=== PATIENT | male | born 1945 | race Caucasian/White ===

== ENCOUNTER 2016-09-13 08:41 | Inpatient (IN) | payer OTHER ==
[~2016-09-13] VITALS: Ht 170.2 cm; Wt 75.0 kg
[2016-09-13] MEDS ORDERED: GLIM4 PO (08:59)
[2016-09-13] MEDS ORDERED: MULT1TAB66 PO (08:59)
[2016-09-13] MEDS ORDERED: ASPI-1093 PO (08:59)
[2016-09-13] MEDS ORDERED: VALS1TAB79 PO (08:59)
[2016-09-13] MEDS ORDERED: MEMA10TA11 PO (08:59)
[2016-09-13] MEDS ORDERED: ESCI10TA PO (08:59)
[2016-09-13] MEDS ORDERED: AMLO-512 PO (08:59)
[2016-09-13] MEDS ORDERED: SITA50 PO (08:59)
[2016-09-13] MEDS ORDERED: DONE10TA PO (08:59)
[2016-09-13] MEDS ORDERED: ATOR20TA86 PO (08:59)
[2016-09-13] MEDS ORDERED: TAMS0.4C32 PO (08:59)
[2016-09-13] MEDS ORDERED: METF500T4 PO (08:59)
[2016-09-13 09:56] LABS: BASOPHILS # (AUTO) 0.03 K/uL (0.00-0.20); BASOPHILS % (AUTO) 0.4 % (0.0-2.0); EOSINOPHILS # (AUTO) 0.04 K/uL (0.00-0.70); EOSINOPHILS % (AUTO) 0.44 % (1.0-6.0); HEMATOCRIT 35.8 % (41-53); HEMOGLOBIN 11.9 g/dL (13.5-17.5); LYMPHOCYTES # (AUTO) 1.2 K/uL (1.0-4.8); LYMPHOCYTES % (AUTO) 12.9 % (22.0-44.0); MEAN CORPUSCULAR HEMOGLOBIN 30.3 pg (26.0-34.0); MEAN CORPUSCULAR HGB CONC 33.3 G/dL (31.0-37.0); MEAN CORPUSCULAR VOLUME 91 fL (80-100); MONOCYTES # (AUTO) 0.7 K/uL (0.1-1.0); MONOCYTES % (AUTO) 7.7 % (2.0-9.0); NEUTROPHILS # (AUTO) 7.3 K/uL (1.8-7.7); NEUTROPHILS % (AUTO) 78.7 % (40.0-70.0); PLATELET COUNT (AUTO) 248 K/uL (150-450); RED BLOOD CELL COUNT(AUTO) 3.94 MIL/uL (4.50-5.90); RED CELL DISTRIBUTION WIDTH 14.5 % (11.5-14.5); WHITE BLOOD COUNT (AUTO) 9.2 K/uL (4.5-11.0)
[2016-09-13 10:09] LABS: ANION GAP 9 mmol/L (8-16); CALCIUM, TOTAL 9.4 mg/dL (8.8-10.5); CARBON DIOXIDE 30 mmol/L (22-29); CHLORIDE 96 mmol/L (98-107); CREATININE 1.02 mg/dL (0.60-1.30); GLOMERULAR FILTR. RATE CALC > 60 mL/min (>60); INR 1.1 (0.9-1.1); POTASSIUM 3.2 mmol/L (3.5-5.1); PROTHROMBIN TIME 11.8 SEC (9.4-11.6); SODIUM SERUM 135 mmol/L (136-145); UREA NITROGEN, BLOOD 21 mg/dL (7-18)
[2016-09-13 10:22] LABS: B-TYPE NATRIURETIC PEPTIDE 29 pg/mL (0-100)
[2016-09-13 10:33] LABS: ALANINE AMINOTRANSFERASE 20 U/L (12-78); ALBUMIN 3.3 g/dL (3.4-5.0); ASPARTATE AMINOTRANSFERASE 21 U/L (15-37); BILIRUBIN,TOTAL 0.5 mg/dL (0.1-1.0); CREATINE KINASE, TOTAL 255 U/L (39-308); TOTAL PROTEIN, SERUM 7.5 g/dL (6.4-8.2)
[2016-09-13 11:48] LABS: APPEARANCE,URINE CLEAR (CLEAR); GLUCOSE, URINE (UA) 250 mg/dL (NEGATIVE); KETONES,URINE TRACE mg/dL (NEGATIVE); LEUKOCYTE ESTERASE ,URINE NEGATIVE (NEGATIVE); OCCULT BLOOD,URINE NEGATIVE (NEGATIVE); PH,URINE 6.5 (5.0-8.0); PROTEIN,URINE TRACE (NEGATIVE)
[2016-09-13 11:50] LABS: ADD UA MICROSCOPIC YES
[2016-09-13 11:53] LABS: RBC,URINE None Seen /HPF (0-2); WBC,URINE None Seen /HPF (0-5)
[2016-09-13 11:54] LABS: SQUAMOUS EPITHELIAL CELL,UR Few /LPF (None Seen)
[2016-09-13] MEDS ORDERED: DEXTROSE 5%-0.45% SODIUM CHL 1,000 ML IV ONE (12:00)
[2016-09-13 14:56] LABS: GLUCOSE,POINT OF CARE 140 MG/DL (70-110)
[2016-09-13 18:16] LABS: GLUCOSE,POINT OF CARE 155 MG/DL (70-110)
[2016-09-13] MEDS ORDERED: POTASSIUM CHLORIDE 20 MEQ ER TABLET PO ONE (18:45)
[2016-09-13] MEDS ORDERED: DEXTROSE 50%-WATER 25 GM/50 ML SYRINGE IVP PRN (23:00)
[2016-09-13] MEDS ORDERED: MORPHINE SULFATE 2 MG/ML SYRINGE IVP PRN (23:00)
[2016-09-13] MEDS ORDERED: 0.9% SODIUM CHLORIDE 10 ML SYRINGE IVP PRN (23:00)
[2016-09-13] MEDS ORDERED: ACETAMINOPHEN 325 MG TABLET PO PRN (23:00)
[2016-09-13] MEDS ORDERED: HYDROCODONE/ACETAMINOPHEN 5-325 MG TABLET PO PRN (23:00)
[2016-09-13 23:55] VITALS: BP 145/78
[2016-09-14] MEDS: ATORVASTATIN CALCIUM 20 MG TABLET PO SCH ×2 (00:39→21:28)
[2016-09-14] MEDS: TAMSULOSIN HCL 0.4 MG CAPSULE PO SCH ×2 (00:40→21:28)
[2016-09-14] MEDS: DEXTROSE 5%-0.45% SODIUM CHL 1,000 ML IV SCH ×2 (00:40→14:53)
[2016-09-14] MEDS: HEPARIN SODIUM,PORCINE 5,000 UNITS/ML VIAL SQ SCH ×4 (00:40→23:55)
[2016-09-14 05:40] VITALS: BP 134/84
[2016-09-14 07:09] VITALS: BP 144/82
[2016-09-14] MEDS ORDERED: [UNRECOGNIZED DRUG - OTHER] PO SCH (09:00)
[2016-09-14 11:13] VITALS: BP 137/76
[2016-09-14] MEDS: AmLODIPine BESYLATE 10 MG TABLET PO SCH (11:18)
[2016-09-14] MEDS: ESCITALOPRAM OXALATE 10 MG TABLET PO SCH (11:18)
[2016-09-14] MEDS: ASPIRIN 81 MG EC TABLET PO SCH (11:18)
[2016-09-14] MEDS: MULTIVITAMINS, THERAPEUTIC TABLET PO SCH (11:18)
[2016-09-14] MEDS: VALSARTAN 160 MG TABLET PO SCH (11:19)
[2016-09-14] MEDS: HYDROCHLOROTHIAZIDE 25 MG TABLET PO SCH (11:19)
[2016-09-14] MEDS: MEMANTINE HCL 10 MG TABLET PO SCH (11:19)
[2016-09-14] MEDS: DONEPEZIL HCL 10 MG TABLET PO SCH (11:20)
[2016-09-14 14:54] LABS: BASOPHILS # (AUTO) 0.09 K/uL (0.00-0.20); BASOPHILS % (AUTO) 1.4 % (0.0-2.0); EOSINOPHILS # (AUTO) 0.08 K/uL (0.00-0.70); EOSINOPHILS % (AUTO) 1.18 % (1.0-6.0); HEMATOCRIT 34.1 % (41-53); HEMOGLOBIN 11.3 g/dL (13.5-17.5); LYMPHOCYTES # (AUTO) 1.6 K/uL (1.0-4.8); LYMPHOCYTES % (AUTO) 23.8 % (22.0-44.0); MEAN CORPUSCULAR VOLUME 91 fL (80-100); MONOCYTES # (AUTO) 0.6 K/uL (0.1-1.0); MONOCYTES % (AUTO) 8.7 % (2.0-9.0); NEUTROPHILS # (AUTO) 4.4 K/uL (1.8-7.7); PLATELET COUNT (AUTO) 228 K/uL (150-450); RED BLOOD CELL COUNT(AUTO) 3.75 MIL/uL (4.50-5.90); RED CELL DISTRIBUTION WIDTH 14.2 % (11.5-14.5); WHITE BLOOD COUNT (AUTO) 6.7 K/uL (4.5-11.0)
[2016-09-14 15:06] VITALS: BP 122/72
[2016-09-14 15:23] LABS: ANION GAP 9 mmol/L (8-16); CALCIUM, TOTAL 8.6 mg/dL (8.8-10.5); CARBON DIOXIDE 27 mmol/L (22-29); CHLORIDE 98 mmol/L (98-107); CREATININE 0.91 mg/dL (0.60-1.30); GLOMERULAR FILTR. RATE CALC > 60 mL/min (>60); POTASSIUM 4.1 mmol/L (3.5-5.1); SODIUM SERUM 134 mmol/L (136-145); UREA NITROGEN, BLOOD 15 mg/dL (7-18)
[2016-09-14 15:25] LABS: ALANINE AMINOTRANSFERASE 17 U/L (12-78); ALBUMIN 2.9 g/dL (3.4-5.0); ASPARTATE AMINOTRANSFERASE 18 U/L (15-37); BILIRUBIN,TOTAL 0.4 mg/dL (0.1-1.0); PHOSPHORUS 2.5 mg/dL (2.5-4.9); TOTAL PROTEIN, SERUM 6.5 g/dL (6.4-8.2)
[2016-09-14] MEDS ORDERED: MAGNESIUM SULFATE 4 GM/WATER 100 ML IV PRN (19:00)
[2016-09-14] MEDS ORDERED: POTASSIUM CHL 10 MEQ/WATER 50 ML IV PRN (19:00)
[2016-09-14] MEDS ORDERED: MAGNESIUM SULFATE 2 GM in DEXTROSE 5%-WATER 50 ML IV PRN (19:00)
[2016-09-14] MEDS ORDERED: POTASSIUM CHLORIDE 20 MEQ ER TABLET PO PRN (19:00)
[2016-09-14 20:21] VITALS: BP 132/73
[2016-09-15] VITALS (7 sets, daily range): BP systolic 113–152; BP diastolic 63–82
[2016-09-15 06:44] LABS: BASOPHILS % (AUTO) 0.5 % (0.0-2.0); EOSINOPHILS % (AUTO) 1.9 % (1.0-6.0); HEMATOCRIT 34.6 % (41-53); HEMOGLOBIN 11.4 g/dL (13.5-17.5); LYMPHOCYTES # (AUTO) 2.2 K/uL (1.0-4.8); LYMPHOCYTES % (AUTO) 30.5 % (22.0-44.0); MEAN CORPUSCULAR HEMOGLOBIN 30.4 pg (26.0-34.0); MEAN CORPUSCULAR HGB CONC 32.8 G/dL (31.0-37.0); MEAN CORPUSCULAR VOLUME 93 fL (80-100); MONOCYTES # (AUTO) 0.8 K/uL (0.1-1.0); MONOCYTES % (AUTO) 10.6 % (2.0-9.0); NEUTROPHILS # (AUTO) 4.1 K/uL (1.8-7.7); NEUTROPHILS % (AUTO) 56.5 % (40.0-70.0); PLATELET COUNT (AUTO) 233 K/uL (150-450); RED BLOOD CELL COUNT(AUTO) 3.73 MIL/uL (4.50-5.90); RED CELL DISTRIBUTION WIDTH 14.2 % (11.5-14.5); WHITE BLOOD COUNT (AUTO) 7.3 K/uL (4.5-11.0)
[2016-09-15 07:05] LABS: ALANINE AMINOTRANSFERASE 18 U/L (12-78); ALBUMIN 2.9 g/dL (3.4-5.0); ANION GAP 9 mmol/L (8-16); ASPARTATE AMINOTRANSFERASE 12 U/L (15-37); BILIRUBIN,TOTAL 0.4 mg/dL (0.1-1.0); CALCIUM, TOTAL 8.6 mg/dL (8.8-10.5); CARBON DIOXIDE 26 mmol/L (22-29); CHLORIDE 100 mmol/L (98-107); CREATININE 0.84 mg/dL (0.60-1.30); GLOMERULAR FILTR. RATE CALC > 60 mL/min (>60); PHOSPHORUS 3.1 mg/dL (2.5-4.9); POTASSIUM 3.5 mmol/L (3.5-5.1); SODIUM SERUM 135 mmol/L (136-145); TOTAL PROTEIN, SERUM 6.7 g/dL (6.4-8.2); UREA NITROGEN, BLOOD 14 mg/dL (7-18)
[2016-09-15] MEDS: ASPIRIN 81 MG EC TABLET PO SCH (09:10)
[2016-09-15] MEDS: MEMANTINE HCL 10 MG TABLET PO SCH (09:10)
[2016-09-15] MEDS: DONEPEZIL HCL 10 MG TABLET PO SCH (09:10)
[2016-09-15] MEDS: DEXTROSE 5%-0.45% SODIUM CHL 1,000 ML IV SCH (09:10)
[2016-09-15] MEDS: HEPARIN SODIUM,PORCINE 5,000 UNITS/ML VIAL SQ SCH ×3 (09:10→23:38)
[2016-09-15] MEDS: ESCITALOPRAM OXALATE 10 MG TABLET PO SCH (09:10)
[2016-09-15] MEDS: HYDROCHLOROTHIAZIDE 25 MG TABLET PO SCH (09:11)
[2016-09-15] MEDS: VALSARTAN 160 MG TABLET PO SCH (09:11)
[2016-09-15] MEDS: MULTIVITAMINS, THERAPEUTIC TABLET PO SCH (09:11)
[2016-09-15] MEDS: AmLODIPine BESYLATE 10 MG TABLET PO SCH (12:07)
[2016-09-15] MEDS: ATORVASTATIN CALCIUM 20 MG TABLET PO SCH (20:24)
[2016-09-15] MEDS: TAMSULOSIN HCL 0.4 MG CAPSULE PO SCH (20:24)
[2016-09-16 04:30] VITALS: BP 128/73
[2016-09-16 04:38] LABS: GLUCOSE,POINT OF CARE 131 MG/DL (70-110)
[2016-09-16 04:38] LABS: GLUCOSE,POINT OF CARE 111 MG/DL (70-110)
[2016-09-16 04:38] LABS: GLUCOSE,POINT OF CARE 251 MG/DL (70-110)
[2016-09-16 04:38] LABS: GLUCOSE,POINT OF CARE 186 MG/DL (70-110)
[2016-09-16 04:38] LABS: GLUCOSE,POINT OF CARE 187 MG/DL (70-110)
[2016-09-16 04:42] LABS: GLUCOSE COMMENT 1 Received Meds; GLUCOSE,POINT OF CARE 227 MG/DL (70-110)
[2016-09-16 04:42] LABS: GLUCOSE,POINT OF CARE 195 MG/DL (70-110)
[2016-09-16 06:52] LABS: BASOPHILS # (AUTO) 0.03 K/uL (0.00-0.20); BASOPHILS % (AUTO) 0.4 % (0.0-2.0); EOSINOPHILS # (AUTO) 0.19 K/uL (0.00-0.70); EOSINOPHILS % (AUTO) 2.38 % (1.0-6.0); HEMATOCRIT 34.8 % (41-53); HEMOGLOBIN 11.8 g/dL (13.5-17.5); LYMPHOCYTES % (AUTO) 24.9 % (22.0-44.0); MEAN CORPUSCULAR HEMOGLOBIN 30.8 pg (26.0-34.0); MEAN CORPUSCULAR HGB CONC 33.9 G/dL (31.0-37.0); MEAN CORPUSCULAR VOLUME 91 fL (80-100); MONOCYTES # (AUTO) 0.8 K/uL (0.1-1.0); MONOCYTES % (AUTO) 9.7 % (2.0-9.0); NEUTROPHILS # (AUTO) 4.9 K/uL (1.8-7.7); NEUTROPHILS % (AUTO) 62.6 % (40.0-70.0); PLATELET COUNT (AUTO) 225 K/uL (150-450); RED BLOOD CELL COUNT(AUTO) 3.83 MIL/uL (4.50-5.90); RED CELL DISTRIBUTION WIDTH 14.4 % (11.5-14.5); WHITE BLOOD COUNT (AUTO) 7.9 K/uL (4.5-11.0)
[2016-09-16 07:16] LABS: ANION GAP 8 mmol/L (8-16); CARBON DIOXIDE 27 mmol/L (22-29); CHLORIDE 100 mmol/L (98-107); CREATININE 0.89 mg/dL (0.60-1.30); GLOMERULAR FILTR. RATE CALC > 60 mL/min (>60); POTASSIUM 4.4 mmol/L (3.5-5.1); SODIUM SERUM 135 mmol/L (136-145); UREA NITROGEN, BLOOD 20 mg/dL (7-18)
[2016-09-16 07:44] VITALS: BP 134/80
[2016-09-16] MEDS: ASPIRIN 81 MG EC TABLET PO SCH (08:30)
[2016-09-16] MEDS: AmLODIPine BESYLATE 10 MG TABLET PO SCH (08:30)
[2016-09-16] MEDS: MULTIVITAMINS, THERAPEUTIC TABLET PO SCH (08:30)
[2016-09-16] MEDS: ESCITALOPRAM OXALATE 10 MG TABLET PO SCH (08:30)
[2016-09-16] MEDS: VALSARTAN 160 MG TABLET PO SCH (08:30)
[2016-09-16] MEDS: HEPARIN SODIUM,PORCINE 5,000 UNITS/ML VIAL SQ SCH ×3 (08:30→23:36)
[2016-09-16] MEDS: MEMANTINE HCL 10 MG TABLET PO SCH (08:31)
[2016-09-16] MEDS: DONEPEZIL HCL 10 MG TABLET PO SCH (08:31)
[2016-09-16] MEDS: HYDROCHLOROTHIAZIDE 25 MG TABLET PO SCH (08:31)
[2016-09-16 11:05] VITALS: BP 119/70
[2016-09-16 15:51] VITALS: BP 128/79
[2016-09-16] MEDS: ATORVASTATIN CALCIUM 20 MG TABLET PO SCH (20:40)
[2016-09-16] MEDS: TAMSULOSIN HCL 0.4 MG CAPSULE PO SCH (20:40)
[2016-09-16 20:51] VITALS: BP 133/78
[2016-09-17] VITALS (7 sets, daily range): BP systolic 118–138; BP diastolic 66–83
[2016-09-17 07:02] LABS: BASOPHILS % (AUTO) 0.6 % (0.0-2.0); EOSINOPHILS % (AUTO) 1.9 % (1.0-6.0); HEMATOCRIT 35.3 % (41-53); HEMOGLOBIN 11.6 g/dL (13.5-17.5); LYMPHOCYTES # (AUTO) 1.9 K/uL (1.0-4.8); MEAN CORPUSCULAR HEMOGLOBIN 30.1 pg (26.0-34.0); MEAN CORPUSCULAR HGB CONC 32.9 G/dL (31.0-37.0); MEAN CORPUSCULAR VOLUME 92 fL (80-100); MONOCYTES # (AUTO) 0.7 K/uL (0.1-1.0); MONOCYTES % (AUTO) 8.9 % (2.0-9.0); NEUTROPHILS # (AUTO) 4.8 K/uL (1.8-7.7); NEUTROPHILS % (AUTO) 63.6 % (40.0-70.0); PLATELET COUNT (AUTO) 232 K/uL (150-450); RED BLOOD CELL COUNT(AUTO) 3.86 MIL/uL (4.50-5.90); RED CELL DISTRIBUTION WIDTH 14.2 % (11.5-14.5); WHITE BLOOD COUNT (AUTO) 7.6 K/uL (4.5-11.0)
[2016-09-17 07:15] LABS: ANION GAP 7 mmol/L (8-16); CALCIUM, TOTAL 8.8 mg/dL (8.8-10.5); CARBON DIOXIDE 27 mmol/L (22-29); CHLORIDE 100 mmol/L (98-107); CREATININE 0.82 mg/dL (0.60-1.30); GLOMERULAR FILTR. RATE CALC > 60 mL/min (>60); POTASSIUM 3.8 mmol/L (3.5-5.1); SODIUM SERUM 134 mmol/L (136-145); UREA NITROGEN, BLOOD 17 mg/dL (7-18)
[2016-09-17] MEDS: HEPARIN SODIUM,PORCINE 5,000 UNITS/ML VIAL SQ SCH ×2 (08:00→17:03)
[2016-09-17] MEDS: ASPIRIN 81 MG EC TABLET PO SCH (08:00)
[2016-09-17] MEDS: MEMANTINE HCL 10 MG TABLET PO SCH (08:00)
[2016-09-17] MEDS: DONEPEZIL HCL 10 MG TABLET PO SCH (08:00)
[2016-09-17] MEDS: ESCITALOPRAM OXALATE 10 MG TABLET PO SCH (08:00)
[2016-09-17] MEDS: VALSARTAN 160 MG TABLET PO SCH (08:01)
[2016-09-17] MEDS: HYDROCHLOROTHIAZIDE 25 MG TABLET PO SCH (08:01)
[2016-09-17] MEDS: AmLODIPine BESYLATE 10 MG TABLET PO SCH (08:01)
[2016-09-17] MEDS: MULTIVITAMINS, THERAPEUTIC TABLET PO SCH (08:01)
[2016-09-17] MEDS: MAGNESIUM OXIDE 400 MG TABLET PO PRN ×3 (12:48→21:02)
[2016-09-17] MEDS ORDERED: MAGNESIUM SULFATE 3 GM in DEXTROSE 5%-WATER 100 ML IV ONE (14:45)
[2016-09-17] MEDS: ATORVASTATIN CALCIUM 20 MG TABLET PO SCH (21:02)
[2016-09-17] MEDS: TAMSULOSIN HCL 0.4 MG CAPSULE PO SCH (21:02)
[2016-09-18] MEDS: HEPARIN SODIUM,PORCINE 5,000 UNITS/ML VIAL SQ SCH ×2 (00:27→09:05)
[2016-09-18 04:22] LABS: GLUCOSE COMMENT 1 Received Meds; GLUCOSE,POINT OF CARE 176 MG/DL (70-110)
[2016-09-18 04:39] VITALS: BP 123/71
[2016-09-18 06:16] LABS: ANION GAP 8 mmol/L (8-16); CALCIUM, TOTAL 8.9 mg/dL (8.8-10.5); CARBON DIOXIDE 27 mmol/L (22-29); CHLORIDE 99 mmol/L (98-107); CREATININE 0.91 mg/dL (0.60-1.30); GLOMERULAR FILTR. RATE CALC > 60 mL/min (>60); POTASSIUM 3.9 mmol/L (3.5-5.1); SODIUM SERUM 134 mmol/L (136-145); UREA NITROGEN, BLOOD 23 mg/dL (7-18)
[2016-09-18 07:04] LABS: BASOPHILS % (AUTO) 0.5 % (0.0-2.0); EOSINOPHILS % (AUTO) 1.8 % (1.0-6.0); HEMATOCRIT 35.3 % (41-53); HEMOGLOBIN 11.5 g/dL (13.5-17.5); LYMPHOCYTES # (AUTO) 2.4 K/uL (1.0-4.8); LYMPHOCYTES % (AUTO) 28.4 % (22.0-44.0); MEAN CORPUSCULAR HGB CONC 32.6 G/dL (31.0-37.0); MEAN CORPUSCULAR VOLUME 92 fL (80-100); MONOCYTES # (AUTO) 0.8 K/uL (0.1-1.0); MONOCYTES % (AUTO) 9.5 % (2.0-9.0); NEUTROPHILS # (AUTO) 5.1 K/uL (1.8-7.7); NEUTROPHILS % (AUTO) 59.8 % (40.0-70.0); PLATELET COUNT (AUTO) 242 K/uL (150-450); RED BLOOD CELL COUNT(AUTO) 3.83 MIL/uL (4.50-5.90); RED CELL DISTRIBUTION WIDTH 13.8 % (11.5-14.5); WHITE BLOOD COUNT (AUTO) 8.6 K/uL (4.5-11.0)
[2016-09-18 07:37] VITALS: BP 137/75
[2016-09-18] MEDS: DONEPEZIL HCL 10 MG TABLET PO SCH (09:03)
[2016-09-18] MEDS: ASPIRIN 81 MG EC TABLET PO SCH (09:03)
[2016-09-18] MEDS: VALSARTAN 160 MG TABLET PO SCH (09:03)
[2016-09-18] MEDS: MULTIVITAMINS, THERAPEUTIC TABLET PO SCH (09:03)
[2016-09-18] MEDS: ESCITALOPRAM OXALATE 10 MG TABLET PO SCH (09:03)
[2016-09-18] MEDS: MEMANTINE HCL 10 MG TABLET PO SCH (09:04)
[2016-09-18] MEDS: HYDROCHLOROTHIAZIDE 25 MG TABLET PO SCH (09:04)
[2016-09-18] MEDS: AmLODIPine BESYLATE 10 MG TABLET PO SCH (09:05)
[2016-09-20 20:07] LABS: GLUCOSE,POINT OF CARE 134 MG/DL (70-110)
[2016-09-20 20:17] LABS: GLUCOSE,POINT OF CARE 181 MG/DL (70-110)
[2016-09-20 20:22] LABS: GLUCOSE,POINT OF CARE 128 MG/DL (70-110)
[2016-09-20 20:27] LABS: GLUCOSE,POINT OF CARE 159 MG/DL (70-110)
[2016-09-20 20:27] LABS: GLUCOSE COMMENT 1 Received Meds; GLUCOSE,POINT OF CARE 213 MG/DL (70-110)
== END 2016-09-18 11:15 | DRG 639 ==
LOC: EMS 08:48 → 5S 17:24
PROVIDERS: ADMIT Internal Medicine; ATTEND Internal Medicine
DX: E11.649 Type 2 diabetes mellitus with hypoglycemia without coma (principal); F03.90 Unspecified dementia, unspecified severity, without behavioral disturbance, psychotic disturbance, mood disturbance, and anxiety; E86.0 Dehydration; E87.6 Hypokalemia; I10 Essential (primary) hypertension; E78.5 Hyperlipidemia, unspecified; N40.0 Benign prostatic hyperplasia without lower urinary tract symptoms; F32.9 Major depressive disorder, single episode, unspecified; Z83.3 Family history of diabetes mellitus; Z82.49 Family history of ischemic heart disease and other diseases of the circulatory system; Z79.84 Long term (current) use of oral hypoglycemic drugs; Z79.82 Long term (current) use of aspirin; Z79.899 Other long term (current) drug therapy
CPT/HCPCS: 70450; 82962; 83735; 84100; 84132; 93005; 96360; 96361; 97161; 99285; J1644; J3475; J7060

== ENCOUNTER 2016-10-07 08:58 | Emergency (ER) | payer OTHER ==
[~2016-10-07] VITALS: Ht 167.6 cm; Wt 72.7 kg
[~2016-10-07 08:58] MED LIST: AMLO-512 PO; ASPI-1093 PO; ATOR20TA86 PO; DONE10TA PO; ESCI10TA PO; GLIM4 PO; MEMA10TA11 PO; METF500T4 PO; MULT1TAB66 PO; SITA50 PO; TAMS0.4C32 PO; VALS1TAB79 PO
[2016-10-07 09:12] LABS: GLUCOSE,POINT OF CARE 128 MG/DL (70-110)
[2016-10-07] MEDS ORDERED: MIRT15 PO (09:33)
[2016-10-07 10:03] LABS: GLUCOSE,POINT OF CARE 103 MG/DL (70-110)
[2016-10-07 10:37] LABS: BASOPHILS % (AUTO) 0.7 % (0.0-2.0); HEMATOCRIT 34.9 % (41-53); HEMOGLOBIN 11.4 g/dL (13.5-17.5); LYMPHOCYTES # (AUTO) 1.3 K/uL (1.0-4.8); LYMPHOCYTES % (AUTO) 15.6 % (22.0-44.0); MEAN CORPUSCULAR HEMOGLOBIN 30.6 pg (26.0-34.0); MEAN CORPUSCULAR HGB CONC 32.8 G/dL (31.0-37.0); MEAN CORPUSCULAR VOLUME 93 fL (80-100); MONOCYTES # (AUTO) 0.7 K/uL (0.1-1.0); MONOCYTES % (AUTO) 8.1 % (2.0-9.0); NEUTROPHILS # (AUTO) 6.2 K/uL (1.8-7.7); NEUTROPHILS % (AUTO) 72.6 % (40.0-70.0); PLATELET COUNT (AUTO) 272 K/uL (150-450); RED BLOOD CELL COUNT(AUTO) 3.74 MIL/uL (4.50-5.90); RED CELL DISTRIBUTION WIDTH 14.6 % (11.5-14.5); WHITE BLOOD COUNT (AUTO) 8.5 K/uL (4.5-11.0)
[2016-10-07 10:52] LABS: ANION GAP 6 mmol/L (8-16); CALCIUM, TOTAL 9.1 mg/dL (8.8-10.5); CARBON DIOXIDE 30 mmol/L (22-29); CHLORIDE 106 mmol/L (98-107); CREATININE 0.89 mg/dL (0.60-1.30); GLOMERULAR FILTR. RATE CALC > 60 mL/min (>60); POTASSIUM 4.3 mmol/L (3.5-5.1); SODIUM SERUM 142 mmol/L (136-145); UREA NITROGEN, BLOOD 16 mg/dL (7-18)
[2016-10-07 10:57] LABS: ALANINE AMINOTRANSFERASE 20 U/L (12-78); ALBUMIN 3.1 g/dL (3.4-5.0); ASPARTATE AMINOTRANSFERASE 14 U/L (15-37); BILIRUBIN,TOTAL 0.5 mg/dL (0.1-1.0)
[2016-10-07 11:08] LABS: GLUCOSE,POINT OF CARE 82 MG/DL (70-110)
[2016-10-07 11:09] LABS: B-TYPE NATRIURETIC PEPTIDE 39 pg/mL (0-100)
[2016-10-07 11:57] LABS: GLUCOSE,POINT OF CARE 123 MG/DL (70-110)
[2016-10-07 12:32] LABS: APPEARANCE,URINE CLEAR (CLEAR); GLUCOSE, URINE (UA) 250 mg/dL (NEGATIVE); KETONES,URINE NEGATIVE (NEGATIVE); LEUKOCYTE ESTERASE ,URINE NEGATIVE (NEGATIVE); OCCULT BLOOD,URINE NEGATIVE (NEGATIVE); PROTEIN,URINE NEGATIVE (NEGATIVE)
[2016-10-07 12:34] LABS: ADD UA MICROSCOPIC YES
[2016-10-07 12:38] LABS: RBC,URINE None Seen /HPF (0-2); WBC,URINE None Seen /HPF (0-5)
[2016-10-07 13:27] LABS: GLUCOSE,POINT OF CARE 157 MG/DL (70-110)
[2016-10-07 14:44] VITALS: BP 142/81
== END 2016-10-07 15:55 | disposition home or self-care (01) ==
LOC: EMS 09:00
DX: E11.649 Type 2 diabetes mellitus with hypoglycemia without coma (principal); I10 Essential (primary) hypertension; F03.90 Unspecified dementia, unspecified severity, without behavioral disturbance, psychotic disturbance, mood disturbance, and anxiety
CPT/HCPCS: 82962; 99284